=== PATIENT | female | born 1970 | race Asian ===

== ENCOUNTER 2019-03-25 14:15 | Emergency (ER) | payer OTHER ==
[~2019-03-25] VITALS: Ht 157.5 cm; Wt 54.0 kg
[2019-03-25 16:54] VITALS: BP 122/71
== END 2019-03-25 16:54 | disposition home or self-care (01) ==
LOC: ED 14:15
DX: R05 Cough (principal); R03.0 Elevated blood-pressure reading, without diagnosis of hypertension
CPT/HCPCS: J7613

== ENCOUNTER 2019-04-01 13:54 | Emergency (ER) | payer OTHER ==
[~2019-04-01] VITALS: Ht 157.5 cm; Wt 54.0 kg
[2019-04-01 13:58] VITALS: BP 126/77
[2019-04-01 14:22] LABS: UA SPECIFIC GRAVITY <=1.005 (1.005-1.035); microscopic required? YES; urine erythrocyte 3+ (NEGATIVE)
== END 2019-04-01 15:00 | disposition home or self-care (01) ==
LOC: ED 13:54
PROVIDERS: Emergency Medicine
DX: N39.0 Urinary tract infection, site not specified (principal); Z98.890 Other specified postprocedural states
CPT/HCPCS: J0696